=== PATIENT | female | born 1950 | race Caucasian/White ===

== ENCOUNTER 2017-12-27 12:15 | Day surgery (SDC) | payer OTHER ==
[~2017-12-27 12:15] MED LIST: Acetaminophen TAB* 325 MG PO PRN; Buffered Lidocaine 0.9% SYRIN* 5 ML/SYR SYRINGE INTRADERM ONE; Midazolam* 1 MG/ML 2 ML VIAL (2 MG) ONE
[2017-12-27] MEDS ORDERED: Propofol* 10 MG/ML 20 ML BTL IV PUSH ONE (13:45)
[2017-12-27] MEDS ORDERED: fentaNYL* 50 MCG/ML 2 ML VIAL (100 MCG VIAL) ONE (13:46)
[2017-12-27] MEDS ORDERED: Midazolam* 1 MG/ML 2 ML VIAL (2 MG) ONE (14:26)
--- NOTE | 2017-12-27 14:52 | OP ---
DATE OF OPERATION: 12/27/2017. DATE OF : 1950. SURGEON: Florentin John M.D. PREOPERATIVE DIAGNOSIS: Cataract right eye. POSTOPERATIVE DIAGNOSIS: Cataract right eye. OPERATIVE PROCEDURE: Extracapsular cataract extraction with intraocular lens implant right eye. PROCEDURE: The patient was brought to the operating room after being given 1/2% Alcaine with epineph rine drops in the preoperative area. The eye was prepped and draped in the usual sterile fashion. S terile drape and eyelid speculum were placed. Again, topical 1/2% Alcaine with epinephrine was given . A paracentesis incision was made at the 9 o'clock position with the No.75 blade. Clear cornea inc ision 2.2 x 2.2-mm was created at the 12 o'clock position starting at the anterior limbus using the 2 .2-mm keratome. The anterior chamber was irrigated with 0.4 mL of 1% non-preservative intracameral l idocaine and filled with DisCoVisc. A capsulorrhexis was completed using the cystotome and the Utrat a forceps. Hydrodissection was performed with balanced salt solution. The lens nucleus was removed w ith the Phacoemulsification handpiece without incident. Cortex was removed with the irrigation-aspir ation handpiece. The capsular bag was re-inflated using DisCoVisc and an SN60WF 20.5 implant was ins erted with the shooter. The irrigation-aspiration handpiece was used to remove all residual DisCoVis c. The eye was refilled with balanced salt solution and the wound checked and found to be watertight . Topical Maxitrol drops were given. [id number]/[facility] #: [id number]
[2017-12-27] MEDS ORDERED: Phenylephrine 2.5% OPTH.SOL* 2 ML BTL ONE (14:56)
[2017-12-27] MEDS ORDERED: Povidone Iodine 5% OPTH* 30 ML BTL ONE (14:56)
[2017-12-27] MEDS ORDERED: Lidocaine 2% EPI 1:200000 MPF* 20 ML VIAL ONE (14:56)
[2017-12-27] MEDS ORDERED: acetaZOLAMIDE TAB* 250 MG ONE (14:56)
[2017-12-27] MEDS ORDERED: Proparacaine 0.5% OPHTH.SOL* 15 ML BTL ONE (14:56)
[2017-12-27] MEDS ORDERED: Lidocaine 1% MPF* 2 ML VIAL ONE (14:56)
[2017-12-27] MEDS ORDERED: Cyclopentolate 1% OPTH.SOL* 2 ML BTL ONE (14:56)
[2017-12-27] MEDS ORDERED: Ketorolac 0.5% OPHTH (NF) 0.5 % 5 ML BTL ONE (14:56)
[2017-12-27] MEDS ORDERED: Neomycin/Polymy/Dex OPTH.SUSP* MAXITROL 0.1% 5 ML ONE (14:56)
[2017-12-27] MEDS ORDERED: Acetaminophen TAB* 325 MG ONE (15:27)
[2017-12-27 15:55] VITALS: BP 104/69
== END 2017-12-27 15:46 | disposition home or self-care (01) ==
LOC: OREAST 12:15
PROVIDERS: ATTEND Specialist
DX: H25.811 Combined forms of age-related cataract, right eye (principal); H16.223 Keratoconjunctivitis sicca, not specified as Sjogren's, bilateral; H43.813 Vitreous degeneration, bilateral; G47.33 Obstructive sleep apnea (adult) (pediatric)
CPT/HCPCS: A9270-GY; J2250; J2704; J3010; V2632

== ENCOUNTER 2018-01-03 09:54 | Day surgery (SDC) | payer OTHER ==
[~2018-01-03 09:54] MED LIST changes: -Midazolam* 1 MG/ML 2 ML VIAL (2 MG) ONE
[2018-01-03] MEDS ORDERED: Midazolam* 1 MG/ML 2 ML VIAL (2 MG) ONE (11:53)
[2018-01-03] MEDS ORDERED: Phenylephrine 2.5% OPTH.SOL* 2 ML BTL ONE (12:11)
[2018-01-03] MEDS ORDERED: Lidocaine 1% MPF* 2 ML VIAL ONE (12:11)
[2018-01-03] MEDS ORDERED: Neomycin/Polymy/Dex OPTH.SUSP* MAXITROL 0.1% 5 ML ONE (12:11)
[2018-01-03] MEDS ORDERED: Lidocaine 2% EPI 1:200000 MPF* 20 ML VIAL ONE (12:11)
[2018-01-03] MEDS ORDERED: Ketorolac 0.5% OPHTH (NF) 0.5 % 5 ML BTL ONE (12:11)
[2018-01-03] MEDS ORDERED: Cyclopentolate 1% OPTH.SOL* 2 ML BTL ONE (12:11)
[2018-01-03] MEDS ORDERED: Povidone Iodine 5% OPTH* 30 ML BTL ONE (12:11)
[2018-01-03] MEDS ORDERED: acetaZOLAMIDE TAB* 250 MG ONE (12:11)
[2018-01-03] MEDS ORDERED: Proparacaine 0.5% OPHTH.SOL* 15 ML BTL ONE (12:12)
[2018-01-03] MEDS ORDERED: fentaNYL* 50 MCG/ML 2 ML VIAL (100 MCG VIAL) ONE (12:19)
[2018-01-03 13:23] VITALS: BP 106/67
--- NOTE | 2018-01-03 16:00 | OP ---
DATE OF OPERATION: 01/03/2018 - [facility] DATE OF : 1950. SURGEON: Florentin John M.D. PREOPERATIVE DIAGNOSIS: Cataract left eye. POSTOPERATIVE DIAGNOSIS: Cataract left eye. OPERATIVE PROCEDURE: Extracapsular cataract extraction with intraocular lens implant left eye. DESCRIPTION OF PROCEDURE: The patient was brought to the operating room after being given 1/2% Alcaine with epinephrine drops in the preoperative area. The eye was prepped and draped in the usual sterile fashion. Sterile drape and eyelid speculum were placed. Again, topical 1/2% Alcaine with epinephrine was given. A paracentesis incision was made at the 3 o'clock position with the No.75 blade. Clear cornea incision 2.2 x 2.2-mm was created at the 6 o'clock position starting at the anterior limbus using the 2.2-mm keratome. The anterior chamber was irrigated with 0.4 mL of 1% non-preservative intracameral lidocaine and filled with DisCoVisc. A capsulorrhexis was completed using the cystotome and the Utrata forceps. Hydrodissection was performed with balanced salt solution. The lens nucleus was removed with the Phacoemulsification handpiece without incident. Cortex was removed with the irrigation-aspiration handpiece. The capsular bag was re-inflated using DisCoVisc and an SN60WF 20.5 implant was inserted with the shooter. The irrigation-aspiration handpiece was used to remove all residual DisCoVisc. The eye was refilled with balanced salt solution and the wound checked and found to be watertight. Topical Maxitrol drops were given. [id number]/[facility] #: [id number] [facility]ITAL[facility]
== END 2018-01-03 13:02 | disposition home or self-care (01) ==
LOC: OREAST 09:54
PROVIDERS: ATTEND Specialist
DX: H25.812 Combined forms of age-related cataract, left eye (principal); H16.223 Keratoconjunctivitis sicca, not specified as Sjogren's, bilateral; H43.813 Vitreous degeneration, bilateral; I51.9 Heart disease, unspecified; R05 Cough; E53.8 Deficiency of other specified B group vitamins; F41.9 Anxiety disorder, unspecified
CPT/HCPCS: A9270-GY; J2250; J3010; V2632

== ENCOUNTER 2024-01-02 09:55 | Observation (INO) ==
[2024-01-02] MEDS ORDERED: ceFAZolin 2 GM in NS PREMIX 2 GM/100 ML BAG IVPB ONE (10:16)
[2024-01-02] MEDS ORDERED: Tranexamic Acid 1 GM/100ML BAG 2,000 MG/200 ML BAG IV ONE (10:16)
[2024-01-02 10:55] LABS: Rapid COVID-19 Molecular Undetected (Undetected)
[2024-01-02] MEDS ORDERED: Albuterol HFA INHALER 8 gm MDI INH ONE (11:18)
[2024-01-02] MEDS ORDERED: Famotidine IV 10 MG/ML 2 ml VIAL (20 mg) ONE (11:18)
[2024-01-02] MEDS ORDERED: HYDROmorphone 1 MG/1 ML SYRINGE IV PRN (11:23)
[2024-01-02] MEDS ORDERED: Ondansetron 4 mg VIAL 2 MG/ML 2 ml VIAL IV PRN ×2 (11:23→15:50)
[2024-01-02] MEDS ORDERED: Naloxone 0.4 mg VIAL 0.4 mg/ml 1 ml VIAL IV PRN (11:23)
[2024-01-02] MEDS ORDERED: fentaNYL 100 mcg/2 ml 50 MCG/ML VIAL ONE ×2 (13:23→18:02)
[2024-01-02] MEDS ORDERED: Lidocaine 2% PF 5 ML VIAL ONE (13:23)
[2024-01-02] MEDS ORDERED: Propofol 10 MG/ML 20 ML BTL ONE ×3 (13:23→16:55)
[2024-01-02] MEDS ORDERED: Midazolam 2 mg/2 ml VIAL 1 mg/ml 2 ml VIAL (2 mg) ONE ×2 (13:23→16:13)
[2024-01-02] MEDS ORDERED: ROPIVACAINE 5 MG/ML 30 ML BTL (0.5%) ONE (13:59)
[2024-01-02] MEDS ORDERED: Morphine 2 MG/ML SYRINGE IV PRN (15:50)
[2024-01-02] MEDS ORDERED: Magnesium Hydroxide LIQ 30 ML UDC PO PRN (15:50)
[2024-01-02] MEDS ORDERED: Ondansetron ODT 4 mg TAB 4 MG TAB PO PRN (15:50)
[2024-01-02] MEDS ORDERED: Lactulose 30 ml UDC PO PRN (15:50)
[2024-01-02] MEDS ORDERED: KETAMINE HCL 10 MG/ML 20 ml VIAL (200 MG) ONE (16:15)
[2024-01-02] MEDS ORDERED: Ondansetron 4 mg VIAL 2 MG/ML 2 ml VIAL ONE (16:32)
[2024-01-02] MEDS ORDERED: Acetaminophen IV 1 GM/100ML 1,000 MG/100 ML BAG IV ONE (17:52)
[2024-01-02] MEDS: Acetaminophen IV 1 GM/100ML 1,000 MG/100 ML BAG IV PRN (18:02)
[2024-01-02] MEDS: fentaNYL 100 mcg/2 ml 50 MCG/ML VIAL IV PRN (18:03)
[2024-01-02] MEDS: Lactated Ringers 1000 ml BAG 1,000 ML IV SCH (20:30)
[2024-01-02] MEDS: Magnesium Hydroxide LIQ 30 ML UDC PO SCH (22:11)
[2024-01-02] MEDS: ceFAZolin 1 GM ADVAN 1 GM in NS 0.9% 50 ML 50 ML IVPB SCH (22:39)
[2024-01-03 05:30] LABS: Hemoglobin 10.6 g/dL (11.5-14.3); Mean Platelet Volume 7.8 fL (7.5-11.2); Platelet Count 142 10^3/uL (150-450)
[2024-01-03 06:14] LABS: Calcium 8.4 mg/dL (8.6-10.3); Creatinine, Serum 0.73 mg/dL (0.51-0.95); Potassium 4.4 mmol/L (3.5-5.0); eGFR CKD-EPI 86.2 (>60)
[2024-01-03] MEDS: Vitamin THERAPEUTIC TAB PO SCH (08:03)
[2024-01-03] MEDS: Lactated Ringers 1000 ml BAG 500 ML IV ONE (10:06)
[2024-01-03 16:03] LABS: Hematocrit 29.8 % (35-45); Hemoglobin 10.1 g/dL (11.5-14.3)
[2024-01-04 06:19] LABS: Hematocrit 31.2 % (35-45); Hemoglobin 10.7 g/dL (11.5-14.3); Mean Platelet Volume 8.1 fL (7.5-11.2); Platelet Count 141 10^3/uL (150-450)
[2024-01-04 10:42] VITALS: BP 89/53
== END 2024-01-04 12:25 | disposition home or self-care (01) ==
LOC: SSU 09:55 → OR 09:55
PROVIDERS: ADMIT Orthopaedic Surgery Adult Reconstructive Orthopaedic Surgery; ATTEND Orthopaedic Surgery Adult Reconstructive Orthopaedic Surgery